=== PATIENT | female | born 1990 | race Caucasian/White ===

== ENCOUNTER 2019-03-14 11:27 | Emergency (ER) | payer MEDICAID ==
[~2019-03-14] VITALS: Ht 170.2 cm; Wt 6.1 kg
[~2019-03-14 11:27] MED LIST: LIDOcaine 1% W/epiNEPHrine 1:100,000 20ml vial ONE; PREN1TAB75 PO
[2019-03-14] MEDS ORDERED: CEPH-572 PO (12:56)
[2019-03-14] MEDS ORDERED: SULF1TAB49 PO (12:56)
[2019-03-14 13:34] VITALS: BP 118/63
== END 2019-03-14 13:35 | disposition home or self-care (01) ==
LOC: ER 11:27
DX: L02.31 Cutaneous abscess of buttock (principal); F11.10 Opioid abuse, uncomplicated; Z86.14 Personal history of Methicillin resistant Staphylococcus aureus infection; Z56.0 Unemployment, unspecified; Z79.2 Long term (current) use of antibiotics; Z79.899 Other long term (current) drug therapy
CPT/HCPCS: 10060; 99283

== ENCOUNTER 2019-04-11 11:21 | Emergency (ER) | payer MEDICAID ==
[~2019-04-11] VITALS: Ht 170.2 cm; Wt 65.0 kg
[~2019-04-11 11:21] MED LIST changes: -LIDOcaine 1% W/epiNEPHrine 1:100,000 20ml vial ONE
[2019-04-11 11:27] VITALS: BP 124/69
== END 2019-04-11 11:37 | disposition home or self-care (01) ==
LOC: ER 11:22
DX: R53.83 Other fatigue (principal); F11.10 Opioid abuse, uncomplicated; F12.90 Cannabis use, unspecified, uncomplicated; F10.99 Alcohol use, unspecified with unspecified alcohol-induced disorder; Z86.14 Personal history of Methicillin resistant Staphylococcus aureus infection; Z56.0 Unemployment, unspecified; Z79.899 Other long term (current) drug therapy; Y90.9 Presence of alcohol in blood, level not specified
CPT/HCPCS: 99281

== ENCOUNTER 2019-04-23 19:40 | Emergency (ER) | payer MEDICAID ==
[~2019-04-23] VITALS: Ht 170.2 cm; Wt 59.1 kg
[2019-04-23 19:43] VITALS: BP 120/78
[2019-04-23] MEDS ORDERED: LIDOcaine 1% w/epiNEPHrine 1:200,000 30ml vial IM ONE (20:15)
[2019-04-23] MEDS ORDERED: SULF1TAB49 PO (20:15)
[2019-04-23] MEDS ORDERED: LIDOcaine 1% w/EPI 1:200,000 injection 10mL vial IM ONE (20:15)
== END 2019-04-23 20:37 | disposition home or self-care (01) ==
LOC: ER 19:41
DX: L02.415 Cutaneous abscess of right lower limb (principal); F12.90 Cannabis use, unspecified, uncomplicated; F11.90 Opioid use, unspecified, uncomplicated; F10.99 Alcohol use, unspecified with unspecified alcohol-induced disorder; Z56.0 Unemployment, unspecified; Z86.14 Personal history of Methicillin resistant Staphylococcus aureus infection; Z79.899 Other long term (current) drug therapy; Y90.9 Presence of alcohol in blood, level not specified
CPT/HCPCS: 10060; 99283

== ENCOUNTER 2020-02-12 09:30 | Emergency (ER) | payer MEDICAID ==
[~2020-02-12] VITALS: Ht 170.2 cm; Wt 80.0 kg
[2020-02-12 09:31] VITALS: BP 126/81
[2020-02-12] MEDS ORDERED: ONDA4TAB6 PO (10:19)
[2020-02-12] MEDS ORDERED: BENZ-16 PO (10:19)
== END 2020-02-12 11:00 | disposition home or self-care (01) ==
LOC: ER 09:30
DX: J06.9 Acute upper respiratory infection, unspecified (principal); Z20.828 Contact with and (suspected) exposure to other viral communicable diseases; F12.90 Cannabis use, unspecified, uncomplicated; F11.90 Opioid use, unspecified, uncomplicated; Z86.14 Personal history of Methicillin resistant Staphylococcus aureus infection; Z72.89 Other problems related to lifestyle; Z56.0 Unemployment, unspecified; Z79.899 Other long term (current) drug therapy
CPT/HCPCS: 36415; 87635; 99283

== ENCOUNTER 2020-06-13 17:11 | Emergency (ER) | payer MEDICAID ==
[~2020-06-13] VITALS: Ht 170.2 cm; Wt 63.6 kg
[~2020-06-13 17:11] MED LIST changes: +ONDA4TAB6 PO
[2020-06-13] MEDS ORDERED: acetaminophen 325mg tablet PO ONE (18:05)
[2020-06-13] MEDS ORDERED: aspirin 325mg tablet PO ONE (18:05)
[2020-06-13 18:30] VITALS: BP 114/70
== END 2020-06-13 18:18 | disposition home or self-care (01) ==
LOC: ER 17:11
DX: R51.9 Headache, unspecified (principal); F12.90 Cannabis use, unspecified, uncomplicated; F11.90 Opioid use, unspecified, uncomplicated; Z87.440 Personal history of urinary (tract) infections; Z86.14 Personal history of Methicillin resistant Staphylococcus aureus infection; Z72.89 Other problems related to lifestyle; Z56.0 Unemployment, unspecified; Z79.899 Other long term (current) drug therapy
CPT/HCPCS: 20552; 99284